=== PATIENT | male | born 1990 | race African-American/Black ===

== ENCOUNTER 2019-09-18 18:26 | Emergency (ER) | payer MEDICAID ==
[~2019-09-18] VITALS: Ht 185.4 cm; Wt 84.8 kg
--- NOTE | 2019-09-18 18:40 | NUR ---
ED Nurse Note: Austin notified of pt's CP. Beto notified of EKG.
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
--- NOTE | 2019-09-18 19:05 | NUR ---
HAND-OFF: Report given to Pamela VALDIVIA.
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
[2019-09-18 19:15] VITALS: BP 126/77
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
[2019-09-18] MEDS ORDERED: Methocarbamol 750mg tab ORAL ONE (19:30)
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
[2019-09-18] MEDS ORDERED: ROBAXIN-500MG ORAL (19:31)
[2019-09-18] MEDS ORDERED: LIDODERM700 M1 TOPIC (19:31)
[2019-09-18] MEDS ORDERED: IBU800 MG PO (19:31)
[2019-09-18 19:50] VITALS: BP 126/77
--- NOTE | 2019-09-18 19:50 | NUR ---
ER DISCHARGE NOTE: Patient is cleared to be discharged per ERMD, pt is aox4, on room air, with stable vital signs. pt was given dc and prescription instructions, pt was able to verbalize understanding, pt id band removed without complications. pt is able to ambulate with steady gait. pt took all belongings.
== END 2019-09-18 19:50 | disposition home or self-care (01) ==
LOC: EMR 19:02
DX: S20.211A Contusion of right front wall of thorax, initial encounter (principal); M85.80 Other specified disorders of bone density and structure, unspecified site; W17.89XA Other fall from one level to another, initial encounter; Y93.55 Activity, bike riding; Y92.9 Unspecified place or not applicable; W22.8XXA Striking against or struck by other objects, initial encounter
CPT/HCPCS: 71045; 93005; Z7502; 99283